=== PATIENT | male | born 1985 | race Two or more races ===

== ENCOUNTER 2020-10-25 09:44 | Emergency (ER) | payer SELFPAY ==
[~2020-10-25] VITALS: Ht 182.9 cm; Wt 131.5 kg
--- NOTE | 2020-10-25 09:55 | NUR ---
C/O "STABBING" CHEST PAIN R/T BACK WHILE DRIVING, STS "FELT LIKE I WILL PASS OUT" UPON ARRIVAL PATIENT'S PS 4/10. PATIENT ASSISTED TO BED 9, CHANGED INTO A GOWN. PLACED ON THE WOOL HANDLER.
--- NOTE | 2020-10-25 09:56 | NUR ---
DR. ALCANTARA AT BEDSIDE FOR EVAL.
--- NOTE | 2020-10-25 10:02 | NUR ---
PHLEB AT BEDSIDE FOR BLOOD DRAWN.
[2020-10-25 10:09] LABS: BASOPHILS # (AUTO) 0.1 /CMM (0.0-0.2); BASOPHILS % (AUTO) 0.8 % (0.0-2.0); EOSINOPHILS % (AUTO) 1.9 % (0.0-6.0); HEMATOCRIT 44 % (39-51); HEMOGLOBIN 14.7 g/dL (13.5-17.5); LYMPHOCYTES # (AUTO) 3.5 /CMM (0.8-4.8); LYMPHOCYTES % (AUTO) 32.3 % (20.0-44.0); MEAN CORPUSCULAR HGB CONC 34 g/dl (31.0-36.0); MEAN CORPUSCULAR VOLUME 92 fL (80-96); MONOCYTES # (AUTO) 1.3 /CMM (0.1-1.30); MONOCYTES % (AUTO) 12.3 % (2.0-12.0); NEUTROPHILS # (AUTO) 5.7 /CMM (1.8-8.9); NEUTROPHILS % (AUTO) 52.7 % (43.0-81.0); PLATELET COUNT (AUTO) 314 /CMM (150-450); RED BLOOD CELL COUNT(AUTO) 4.78 MIL/uL (4.5-6.0); WHITE BLOOD COUNT (AUTO) 10.9 K/uL (4.3-11.0)
[2020-10-25 10:18] LABS: CALCIUM, SERUM 8.9 mg/dL (8.5-10.1); CARBON DIOXIDE 32 mmol/L (21-32); CHLORIDE 103 mmol/L (98-107); GLUCOSE 120 mg/dL (74-106); POTASSIUM 4.2 mmol/L (3.5-5.1); SODIUM SERUM 140 mmol/L (136-145); UREA NITROGEN, BLOOD 21 mg/dL (7-18)
[2020-10-25 10:23] LABS: ALANINE AMINOTRANSFERASE 70 U/L (12-78); ALBUMIN 3.5 g/dL (3.4-5.0); ALKALINE PHOSPHATASE 166 U/L (46-116); ASPARTATE AMINOTRANSFERASE 32 U/L (15-37); BILIRUBIN,DIRECT 0.1 mg/dL (0.0-0.2); BILIRUBIN,TOTAL 0.3 mg/dL (0.2-1.0); TOTAL PROTEIN, SERUM 7.3 g/dL (6.4-8.2)
--- NOTE | 2020-10-25 10:56 | NUR ---
PATIENT RESTING, IN NO DISTRESS NOTED. VSS.
[2020-10-25] MEDS ORDERED: LIDOCAINE VISCOUS 2% UD 15 ML UDC ONE (11:26)
[2020-10-25] MEDS ORDERED: MAG HYDROX/AL HYDROX/SIMETH 30 ML UDC ONE (11:27)
[2020-10-25] MEDS ORDERED: MAG HYDROX/AL HYDROX/SIMETH 30 ML UDC PO ONE (11:30)
[2020-10-25] MEDS ORDERED: LIDOCAINE VISCOUS 2% UD 15 ML UDC MM ONE (11:30)
[2020-10-25 12:18] VITALS: BP 120/55
--- NOTE | 2020-10-25 12:18 | NUR ---
PATIENT STS HE FEELS BETTER, PAIN HAS IMPROVED. A/OX4, AMBULATORY WITH STEADY GAIT. NO DISTRESS NOTED. VSS. Patient discharged to home in stable condition. Written and verbal after care instructions given. Patient verbalizes understanding of instruction.
== END 2020-10-25 12:19 | disposition home or self-care (01) ==
LOC: ER 09:49
DX: R07.89 Other chest pain (principal); F17.200 Nicotine dependence, unspecified, uncomplicated; Z60.2 Problems related to living alone
CPT/HCPCS: 36415; 71045-TC; 80048-TC; 80076-TC; 84484-TC; 85025-TC; 85378-TC